=== PATIENT | male | born 1980 | race Caucasian/White ===

== ENCOUNTER 2025-06-28 15:13 | Emergency (ER) | payer OTHER ==
[2025-06-28 16:51] LABS: BASOPHILS ABSOLUTE AUTO 0.2 K/mm3 (0.0-0.2); BASOPHILS PERCENT AUTO 1.6 % (0.0-1.0); EOSINOPHILS ABSOLUTE AUTO 5.1 K/mm3 (0.0-0.4); EOSINOPHILS PERCENT AUTO 34.0 % (0.0-6.0); IMMATURE GRAN ABSOLUTE AUTO 0.03 K/mm3 (0.00-0.05); IMMATURE GRAN PERCENT AUTO 0.2 % (0.0-0.4); LYMPHOCYTES ABSOLUTE AUTO 1.7 K/mm3 (1.0-4.8); LYMPHOCYTES PERCENT AUTO 11.2 % (24.0-44.0); MEAN PLATELET VOLUME 10.7 fl (9.4-12.4); MONOCYTES ABSOLUTE AUTO 0.9 K/mm3 (0.0-0.8); MONOCYTES PERCENT AUTO 6.1 % (0.0-8.0); NEUTROPHILS ABSOLUTE AUTO 7.0 K/mm3 (1.8-7.7); NEUTROPHILS PERCENT AUTO 46.9 % (41.0-71.0); NRBC ABSOLUTE 0.00 (0.00-0.02); NRBC PERCENT 0.0 % (0.0-0.2); PLATELET COUNT,PLT 228 K/mm3 (150-400); RED BLOOD CELL COUNT 5.51 M/mm3 (4.52-5.90); WHITE BLOOD CELL COUNT,WBC 14.87 K/mm3 (3.9-11.3)
[2025-06-28 17:04] LABS: APPEARANCE,URINE CLEAR (Clear); GLUCOSE,URINE NEGATIVE (Negative); OCCULT BLOOD,URINE NEGATIVE (Negative)
[2025-06-28 17:20] LABS: LACTIC ACID 1.0 mmol/L (0.4-2.0)
[2025-06-28 17:28] LABS: A/G RATIO 1.3 (1-2); ALANINE AMINOTRANSFERASE,ALT 55 U/L (16-63); ASPARTATE AMNIOTRANSFERASE,AST 30 U/L (15-37); BILIRUBIN TOTAL 1.0 mg/dL (0.2-1.0); BLOOD UREA NITROGEN,BUN 30 mg/dL (7-18); CARBON DIOXIDE,CO2 28 mEq/L (21-32); CHLORIDE,CL 102 mEq/L (98-107); CREATININE 1.3 mg/dL (0.7-1.3); ESTIMATED GFR 69 mL/min (>60); GLUCOSE RANDOM 116 mg/dL (70-99); PROTEIN TOTAL,TP 7.7 g/dl (6.4-8.2); SODIUM,NA 141 mEq/L (136-145)
[2025-06-28 17:34] LABS: POTASSIUM,K 3.5 mEq/L (3.5-5.1)
[2025-06-28 17:36] LABS: CREATINE KINASE,CK 162.0 U/L (39-308); ETHANOL BLOOD MEDICAL 0.0 gm% (0.00); TROPONIN I HIGH SENSITIVITY 7.0 pg/mL (<=76); TSH 1.567 uIU/mL (0.358-3.74)
[2025-06-28 17:36] LABS: EPITHELIAL CELLS,URINE 0-5 /hpf (0-5)
[2025-06-28] MEDS: Iopamidol 755 Mg/ML 100 ML Bottle IVPUSH ONE (17:44)
[2025-06-28] MEDS: Sodium Chloride 0.9% 10 ML Syringe FLUSH PRN (17:44)
[2025-06-28 17:49] LABS: INR 1.03
[2025-06-28 17:52] LABS: BUPRENORPHINE SCREEN,URINE NEGATIVE (CUTOFF=10); METHADONE SCREEN, URINE NEGATIVE (CUT0FF=200); METHAMPHETAMINES SCREEN, URINE NEGATIVE (CUTOFF=500); OXYCODONE SCREEN,URINE NEGATIVE (CUT0FF=100); THC SCREEN,URINE 20 NG/ML PRESUMPTIVE POSITIVE (CUTOFF=50)
[2025-06-28 18:00] LABS: AMPHETAMINES SCREEN, URINE NEGATIVE (CUTOFF=500)
[2025-06-28 18:08] LABS: CORONAVIRUS COVID-19 NAA NEGATIVE (NEGATIVE); INFLUENZA A NAA NEGATIVE (NEGATIVE); RESPIRATORY SYNCYTIAL VIR NAA NEGATIVE (NEGATIVE)
[2025-06-28 19:01] LABS: RETICULOCYTE COUNT PERCENT 1.95 % (0.50-2.00)
[2025-06-29 12:47] LABS: NEUTROPHILS% 52 % (41-71)
== END 2025-06-28 19:30 | disposition home or self-care (01) ==
LOC: JD.ED 15:13
DX: R53.83 Other fatigue (principal); R58 Hemorrhage, not elsewhere classified; R06.02 Shortness of breath; M79.602 Pain in left arm; R00.2 Palpitations; Z88.5 Allergy status to narcotic agent
CPT/HCPCS: 36415; 71275; 73060; 73090; 73130; 74177; 80053; 80179; 80306; 80307; 81001; 82550; 83605; 83690; 83735; 83880; 84443; 84484; 85025; 85045; 85610; 85730; 86308; 87040; 87637; 93005; 93971; 96360; 99284; J7030; Q9967; 93010